=== PATIENT | male | born 2000 | race Caucasian/White ===

== ENCOUNTER 2022-09-10 10:37 | Emergency (ER) | payer OTHER ==
[~2022-09-10] VITALS: Ht 170.2 cm; Wt 59.4 kg
[2022-09-10 10:44] VITALS: BP 108/86
== END 2022-09-10 11:45 | disposition home or self-care (01) ==
LOC: ER 10:37
DX: F41.0 Panic disorder [episodic paroxysmal anxiety] (principal); R11.0 Nausea; F43.10 Post-traumatic stress disorder, unspecified; Z88.0 Allergy status to penicillin
CPT/HCPCS: 99283; A9270